=== PATIENT | female | born 1995 | race Caucasian/White ===

== ENCOUNTER 2017-02-23 08:06 | Day surgery (SDC) | payer BC ==
[~2017-02-23 08:06] MED LIST: Buffered Lidocaine 1% SYRIN* 3 ML/SYR SYRINGE INTRADERM ONE
[2017-02-23 08:15] LABS: Manual Entry Verification HAN0055; UR Preg Internal Control QC Line Present
[2017-02-23 08:40] LABS: Hematocrit 41 % (35-47); Hemoglobin 13.6 g/dl (12.0-16.0); Mean Corpuscular HGB Conc 33 g/dl (31-36); Mean Corpuscular Hemoglobin 28 pg (27-31); Mean Corpuscular Volume 85 fL (80-97); Mean Platelet Volume 9 um3 (7.4-10.4); Red Cell Distribution Width 13 % (10.5-15); White Blood Count 6.5 10^3/ul (3.5-10.8)
[2017-02-23] MEDS ORDERED: Midazolam* 1 MG/ML 5 ML VIAL (5 MG) ONE (09:24)
[2017-02-23] MEDS ORDERED: fentaNYL* 50 MCG/ML 2 ML VIAL (100 MCG VIAL) ONE ×2 (09:37→10:51)
[2017-02-23] MEDS ORDERED: Chloroprocaine 2%* 20 ML VIAL ONE (09:37)
[2017-02-23] MEDS ORDERED: Ondansetron INJ* 2 MG/ML VIAL IV PRN (10:01)
[2017-02-23] MEDS ORDERED: HYDROmorphone* 1 MG/ML 1 ML SYR IV PRN (10:01)
[2017-02-23] MEDS: fentaNYL* 50 MCG/ML 2 ML VIAL (100 MCG VIAL) IV PRN ×2 (10:52→11:18)
[2017-02-23] MEDS ORDERED: HYDROcodone/ACETAMIN 5-325 MG* 1 TAB ONE (11:02)
[2017-02-23] MEDS ORDERED: Ketorolac INJ* 30 MG/ML 1 ML VIAL ONE (11:02)
[2017-02-23] MEDS ORDERED: Ondansetron INJ* 2 MG/ML VIAL ONE (11:47)
[2017-02-23 11:56] VITALS: BP 117/85
--- NOTE | 2017-02-23 21:23 | OP ---
DATE OF ADMISSION: 02/23/17 - [facility] DATE OF : 89 SURGEON: Nydia Bryant MD ANESTHESIOLOGIST: Gerardo Sanchez MD ANESTHESIA: Spinal. PREOPERATIVE DIAGNOSES: Multiparity, desires permanent sterilization. POSTOPERATIVE DIAGNOSES: Multiparity, desires permanent sterilization. OPERATIVE PROCEDURE: Hysteroscopy, placement of Essure coil. ESTIMATED BLOOD LOSS: Minimal. FLUIDS: Crystalloid. DRAINS: Clear urine via straight catheter prior to the procedure. FINDINGS: Normal appearing uterine cavity. DESCRIPTION OF PROCEDURE: After informed consent was signed, the patient was taken to the operating room where she was given spinal anesthesia, which was found to be adequate. She was prepped and draped in the dorsal lithotomy position in the [facility]. Speculum was placed into the vagina to expose the cervix and the anterior lobe of the cervix was grasped with a single- tooth tenaculum. The cervix was sounded to 8 cm and dilated until the Essure hysteroscope could be inserted. The hysteroscope was then inserted through the cervix and the uterine cavity was visualized and appeared to be normal. Both ostium were easily visualized. The Essure devices were then opened and the first one was inserted through the working part of the hysteroscope. This was inserted into the patient's right tube and released with one coil remaining in the uterine cavity. Next, a second Essure device was inserted and put into the patient's left tube. This was also released and the coil disappeared just inside the ostia with release. The hysteroscope was then removed. The tenaculum was removed and there was good hemostasis with silver nitrate. The speculum was then removed from the vagina. The patient was cleaned and placed back in the supine position and moved to the stretcher and taken to the recovery room in stable condition. [id number]/CPS #: [id number] MTDD
== END 2017-02-23 11:57 | disposition home or self-care (01) ==
LOC: OR 08:06
PROVIDERS: ATTEND Obstetrics & Gynecology
DX: Z30.2 Encounter for sterilization (principal)
CPT/HCPCS: 36415; 81025; 85025; J1885; J2250; J2400; J2405; J3010; J7306

== ENCOUNTER 2018-06-12 06:37 | Day surgery (SDC) | payer BC ==
--- NOTE | 2018-06-07 06:21 | HP ---
PREOPERATIVE HISTORY AND PHYSICAL: DATE OF SURGERY/ADMISSION: 06/12/18 DATE OF OFFICE VISIT/ENCOUNTER: 06/06/18 ATTENDING SURGEON: Krystyna Son MD * (DICTATED BY MUKESH BRADLEY) PROCEDURE: Right wrist removal of radial styloid nonunion. CHIEF COMPLAINT: Right wrist pain. HISTORY OF PRESENT ILLNESS: This is a 22-year-old female who sustained injury to her right wrist about 8 months ago. She was dancing and she smashed her wrist on something. She put a brace on her wrist and eventually it started to feel better, so she took the brace off and never had it evaluated at that time. She started doing some things with her hand and she felt a sudden sharp pain again in the wrist. This was back in September of 2017. She denies any associated numbness and tingling. She was seen by Dr. Son towards the end of September 2017 and had x- rays of the wrist, which showed a radial styloid fracture nonunion. She has consented to proceed with surgery at this point in the form of right wrist removal of the radial styloid nonunion. PAST MEDICAL HISTORY: 1. Migraine headaches. 2. Asthma. 3. Three vaginal births - the patient reports difficulty responding to the anesthesia that was administered. PAST SURGICAL HISTORY: 1. Tonsillectomy and adenoidectomy. 2. Essure implant. CURRENT MEDICATIONS: 1. Amitriptyline HCl 10 mg 1 to 2 tabs q.h.s. p.r.n. 2. Claritin 10 mg daily. 3. Sumatriptan succinate 100 mg use at onset of headache. 4. Tylenol 325 mg 2 tabs q.4 hours p.r.n. pain. ALLERGIES: BENADRYL, cough and cold medicines, and ROBITUSSIN cause hives and trouble breathing. FAMILY MEDICAL HISTORY: Hypertension, ovarian cancer, heart disease. 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 She denies tobacco use and recreational drug use. She drinks alcohol on occasion. REVIEW OF SYSTEMS: General: Negative for fevers, chills, night sweats, unexplained weight loss/gain. HEENT: Negative for headache, lightheadedness, syncopal episodes, visual changes. Integumentary: Negative for abrasions, lesions, or open wounds. Cardiothoracic: Negative for hypertension, chest pain , palpitations, edema. Respiratory: Negative for shortness of breath with exertion, chronic cough, wheezing. GI: Negative for nausea, vomiting, diarrhea , constipation, GERD. : Negative for nocturia, urinary frequency, urgency, history of UTIs, kidney problems. Musculoskeletal: Positive for current complaint. Negative for chronic or intermittent back pain or history of fractures. Neurological: Negative for paresthesias, numbness, history of seizure, stroke, poor balance. Endocrine: Negative for diabetes and thyroid issues. Hematologic: Negative for easy bruising, anemia, bleeding disorders, history of DVT. Infectious Disease: Negative for history of MRSA, hepatitis C , HIV. PHYSICAL EXAMINATION GENERAL: Well-developed, well-nourished 22-year-old female, in no acute distress. VITAL SIGNS: Height 5 feet 4 inches, weight 136 pounds. Blood pressure 118/72 , pulse rate 76. HEENT: Normocephalic, atraumatic. Pupils are equal, round, and reactive to light and accommodation. Extraocular movements are intact. Throat is clear. NECK: Supple. No palpable lymph nodes. PULMONARY: Lungs are clear to auscultation bilaterally. No wheezes, rales, or rhonchi. CARDIOVASCULAR: Regular rate and rhythm. S1, S2. No murmurs, rubs, or gallops. No edema. ABDOMEN: Positive bowel sounds. Soft, nontender. NEUROLOGICAL: Alert and oriented x3. Cranial nerves II through XII are intact. Sensation is intact to light touch. MUSCULOSKELETAL: On exam of her right wrist, she has tenderness to palpation at the right radial styloid, some increased pain with pronation and supination. She has good motion with flexion and extension with minimal pain. She can make a fist. Skin is intact. Neurovascular function is intact. IMAGING STUDIES: X-rays of the right wrist show a subacute minimally displaced small avulsion fracture of the radial styloid without compelling fracture, healing response. IMPRESSION: Right radial styloid fracture nonunion. PLAN: The patient is scheduled to undergo a right wrist removal of radial styloid nonunion with Dr. Son on 06/12/18. She will return to the office 10 days postop for followup and suture removal. A prescription for Ultracet was e- scribed to the patient's pharmacy for postoperative pain management. MUKESH BRADLEY [id number]/[facility] #: [id number] [facility] HOSPITALJerod
[~2018-06-12 06:37] MED LIST changes: +Buffered Lidocaine 0.9% SYRIN* 5 ML/SYR SYRINGE INTRADERM ONE; -Buffered Lidocaine 1% SYRIN* 3 ML/SYR SYRINGE INTRADERM ONE
[2018-06-12] MEDS ORDERED: Midazolam* 1 MG/ML 5 ML VIAL (5 MG) ONE (07:14)
[2018-06-12] MEDS ORDERED: fentaNYL* 50 MCG/ML 2 ML VIAL (100 MCG VIAL) ONE (07:14)
[2018-06-12] MEDS ORDERED: Bupivacaine 0.5% PF 10 ML VIAL INJ ONE ×2 (07:21)
[2018-06-12] MEDS ORDERED: Famotidine IV* 10 MG/ML 2 ML (20 mg) ONE (07:22)
[2018-06-12] MEDS ORDERED: Acetaminophen TAB* 325 MG PO PRN (07:43)
[2018-06-12] MEDS ORDERED: Nalbuphine* 10 MG/ML 1 ML VIAL IV PRN (07:43)
[2018-06-12] MEDS ORDERED: fentaNYL* 50 MCG/ML 2 ML VIAL (100 MCG VIAL) IV PRN (07:43)
[2018-06-12] MEDS ORDERED: Naloxone* 0.4 MG/ML 1 ML VIAL IV PRN (07:43)
[2018-06-12] MEDS ORDERED: PROCHLORPERAZINE INJ 5 MG/ML 2 ML VIAL IV PRN (07:43)
[2018-06-12] MEDS ORDERED: Ondansetron INJ* 2 MG/ML VIAL IV PRN (07:43)
[2018-06-12] MEDS ORDERED: HYDROcodone/ACETAMIN 5-325 MG* 1 TAB PO PRN ×2 (07:43)
[2018-06-12] MEDS ORDERED: Levalbuterol 0.63MG/3ML NEB* UNIT OF USE INH PRN (07:43)
[2018-06-12] MEDS ORDERED: Dexamethasone IV* 4 MG/ML 1 ML (4 MG) ONE (08:07)
[2018-06-12] MEDS ORDERED: Lidocaine 2% PF * 5 ML VIAL ONE (08:07)
[2018-06-12] MEDS ORDERED: Propofol* 10 MG/ML 20 ML BTL IV PUSH ONE (08:07)
[2018-06-12] MEDS ORDERED: Ondansetron INJ* 2 MG/ML VIAL ONE (08:07)
[2018-06-12] MEDS ORDERED: Ketorolac INJ* 30 MG/ML 1 ML VIAL ONE (08:07)
[2018-06-12 10:01] VITALS: BP 109/60
--- NOTE | 2018-06-12 21:41 | OP ---
CC: Krystyna Son MD* OPERATIVE REPORT: DATE OF OPERATION: 06/12/18 - [facility] DATE OF : 89 SURGEON: Krystyna Son MD DENTAL DETAIL REPRESENTATIVE: MUKESH Thomson ANESTHESIOLOGIST: Steven Arechiga MD ANESTHESIA: General. 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 OPERATIVE PROCEDURE: Radial styloid nonunion removal from the right wrist. INDICATIONS: Candy is a 23-year-old female, who has a nonunion of the radial styloid fracture of the right wrist. She presents for removal. ESTIMATED BLOOD LOSS: Zero. TOURNIQUET TIME: About 25 minutes. DESCRIPTION OF PROCEDURE: The patient was brought to the operating room, was given a general anesthetic, and placed in the supine position on the operating table with a tourniquet around her right forearm. The skin of her right hand and forearm was prepped and draped in the usual sterile fashion. The hand and forearm were exsanguinated and the tourniquet elevated to 250 mmHg. A longitudinal incision was made centered over the radial styloid and we dissected bluntly through the subcutaneous tissue. Branches of the radial sensory nerve were located and retracted by the registered nurse surgical services, Ginette Miranda. The first dorsal compartment was incised longitudinally completely releasing the APL and EPB tendons and these tendons were then retracted and subperiosteal dissection was performed down to the bone of the radial styloid. The nonunion fragment was removed with a rongeur and osteotome. The wound was irrigated. The periosteum was reapproximated with 2-0 Vicryl suture and the skin edges reapproximated with 4-0 nylon suture. The wound was dressed with Xeroform, 4x4, Webril, and an Dimas wrap. The patient tolerated the procedure well and was brought to the recovery room in good condition. [id number]/[facility] #: [id number] [facility]ITALJerod
== END 2018-06-12 09:36 | disposition home or self-care (01) ==
LOC: OREAST 06:37
PROVIDERS: ATTEND Orthopaedic Surgery
DX: S52.511K Displaced fracture of right radial styloid process, subsequent encounter for closed fracture with nonunion (principal); J45.909 Unspecified asthma, uncomplicated; W22.8XXD Striking against or struck by other objects, subsequent encounter; Y92.9 Unspecified place or not applicable
CPT/HCPCS: 81025; 88304; 88311; J1100; J1885; J2250; J2405; J2704; J3010